=== PATIENT | female | born 2000 | race American Indian/Alaskan Native ===

== ENCOUNTER 2018-01-11 09:34 | Emergency (ER) | payer OTHER ==
[2018-01-11] MEDS ORDERED: Sodium Chloride 0.9% 2.5 ML Syringe FLUSH PRN (09:46)
[2018-01-11] MEDS ORDERED: Sodium Chloride 0.9% 1,000 ML IV ONE ×2 (09:46→10:48)
[2018-01-11] MEDS ORDERED: Sodium Chloride 0.9% 10 ML Syringe FLUSH PRN (09:46)
[2018-01-11] MEDS ORDERED: Ondansetron 4 MG/2 ML SDV IVPUSH ONE (09:46)
--- NOTE | 2018-01-11 09:46 | EDM.PDOC ---
ED HPI GENERAL MEDICAL PROBLEM - General Chief Complaint: Gastrointestinal Problem Stated Complaint: VOMITING Time Seen by Provider: 01/11/18 09:37 Source of Information: Reports: Patient History Limitations: Reports: No Limitations - History of Present Illness INITIAL COMMENTS - FREE TEXT/NARRATIVE: History of present illness: []Patient's had 3 days of vomiting and diarrhea within 10 times each per day and is watery. Patient has a 4 year history of intermittent enteritis she does not take any medications for. Last week she saw her physician and was put on a steroid Dosepak that she completed. She states she's had fevers and diffuse abdominal pain. She denies being and had a negative test last week. She denies any exposures to anyone with similar symptoms. Review of systems: As per history of present illness and below otherwise all systems reviewed and negative. Past medical history: As per history of present illness and as reviewed below otherwise noncontributory. Surgical history: As per history of present illness and as reviewed below otherwise noncontributory. Social history: No reported history of drug or alcohol abuse. Family history: As per history of present illness and as reviewed below otherwise noncontributory. Physical exam: General: Well developed, well nourished in NAD HEENT: Atraumatic, normocephalic, pupils reactive, negative for conjunctival pallor or scleral icterus, mucous membranes moist, throat clear, neck supple, nontender, trachea midline. Lungs: Clear to auscultation, breath sounds equal bilaterally, chest nontender. Heart: S1S2, regular, negative for clicks, rubs, or JVD. Abdomen: Soft, nondistended, nontender. Negative for masses or hepatosplenomegaly. Negative for costovertebral tenderness. Pelvis: Stable nontender. Genitourinary: Deferred. Rectal: Deferred. Extremities: Atraumatic, negative for cords or calf pain. Neurovascular unremarkable. Neuro: Awake, alert, oriented. Cranial nerves II through XII unremarkable. Cerebellum unremarkable. Motor and sensory unremarkable throughout. Exam nonfocal. Diagnostics: []CBC normal, chemistries normal, UA with 40+ ketones Therapeutics: []2 L IV fluids given, Zofran Reglan given for nausea and vomiting, Levsin given for pain. Impression: []Acute enteritis, dehydration Plan: []Zofran for nausea, increase fluids follow up with primary care Definitive disposition and diagnosis as appropriate pending reevaluation and review of above. - Related Data Allergies Allergy/AdvReac Type Severity Reaction Status Date / Time No Known Allergies Allergy Verified 01/11/18 09:48 Home Meds: Home Meds Levonorgestrel-Ethin Estradiol [Levonor-Eth Estrad 0.15-0.03] 1 tab PO DAILY [History] H2 Madhav 1 dose PO DAILY 01/11/18 [History] Ondansetron HCl [Zofran] 4 mg PO Q4HR #12 tablet 01/11/18 [Rx] Past Medical History HEENT History: Reports: None Cardiovascular History: Reports: None Respiratory History: Reports: None Other Gastrointestinal History: occ heartburn, epigastric pain-has not had an episode of n/v for 2 weeks Genitourinary History: Reports: None VAN LOADER History: Reports: None Musculoskeletal History: Reports: None Neurological History: Reports: None Psychiatric History: Reports: None Endocrine/Metabolic History: Reports: None Hematologic History: Reports: None Immunologic History: Reports: None Oncologic (Cancer) History: Reports: None Dermatologic History: Reports: None - Infectious Disease History Infectious Disease History: Reports: None - Past Surgical History Head Surgeries/Procedures: Reports: None HEENT Surgical History: Reports: Tonsillectomy GI Surgical History: Reports: Cholecystectomy, EGD Female Surgical History: Reports: None Social & Family History - Family History Family Medical History: Noncontributory - Caffeine Use Caffeine Use: Reports: Soda ED ROS GENERAL - Review of Systems Review Of Systems: See Below (See history of present illness) ED EXAM, GI/ABD - Physical Exam Exam: See Below (See history of present illness) Course - Vital Signs Last Recorded V/S: Last Vital Signs Temp 98.2 F 01/11/18 09:50 Pulse 80 01/11/18 09:50 Resp 18 01/11/18 09:50 BP 141/93 H 01/11/18 09:50 Pulse Ox 97 01/11/18 09:50 - Orders/Labs/Meds Orders: Active Orders 24 hr Category Date Time Status CULTURE URINE [RM] Stat Lab 01/11/18 09:43 Received HCG QUALITATIVE,URINE [URCHEM] Stat Lab 01/11/18 09:43 Ordered UA W/MICROSCOPIC [URIN] Stat Lab 01/11/18 09:43 Ordered Sodium Chloride 0.9% [Saline Flush] Med 01/11/18 09:46 Active 10 ml FLUSH ASDIRECTED PRN Sodium Chloride 0.9% [Saline Flush] Med 01/11/18 09:46 Active 2.5 ml FLUSH ASDIRECTED PRN Saline Lock Insert [OM.PC] Stat Oth 01/11/18 09:46 Ordered Medication Orders Sodium Chloride (Saline Flush) 10 ml FLUSH ASDIRECTED PRN PRN Reason: Keep Vein Open Last Admin: 01/11/18 09:58 Dose: 10 ml Sodium Chloride (Saline Flush) 2.5 ml FLUSH ASDIRECTED PRN PRN Reason: Keep Vein Open Last Admin: 01/11/18 09:58 Dose: 2.5 ml Labs: Laboratory Tests 01/11/18 01/11/18 01/11/18 Range/Units 09:43 09:43 09:56 WBC 10.59 (4.0-11.0) K/uL RBC 5.70 (4.30-5.90) M/uL Hgb 16.3 H (12.0-16.0) g/dL Hct 47.5 H (36.0-46.0) % MCV 83.3 (80.0-98.0) fL MCH 28.6 (27.0-32.0) pg MCHC 34.3 (31.0-37.0) g/dL RDW Std Deviation 43.3 (28.0-62.0) fl RDW Coeff of Atif 14 (11.0-15.0) % Plt Count 333 (150-400) K/uL MPV 12.20 H (7.40-12.00) fL Neut % (Auto) 70.5 (48.0-80.0) % Lymph % (Auto) 17.9 (16.0-40.0) % [place] % (Auto) 9.6 (0.0-15.0) % Eos % (Auto) 1.6 (0.0-7.0) % Baso % (Auto) 0.4 (0.0-1.5) % Neut # (Auto) 7.5 H (1.4-5.7) K/uL Lymph # (Auto) 1.9 (0.6-2.4) K/uL [place] # (Auto) 1.0 H (0.0-0.8) K/uL Eos # (Auto) 0.2 (0.0-0.7) K/uL Baso # (Auto) 0.0 (0.0-0.1) K/uL Nucleated RBC % 0.0 /100WBC Nucleated RBCs # 0 K/uL Sodium (136-145) mmol/L Potassium (3.5-5.1) mmol/L Chloride (98-107) mmol/L Carbon Dioxide (21.0-32.0) mmol/L BUN (7.0-18.0) mg/dL Creatinine (0.6-1.0) mg/dL Est Cr Clr Drug Dosing mL/min Estimated GFR (MDRD) ml/min Glucose (74-106) mg/dL Calcium (8.5-10.1) mg/dL Total Bilirubin (0.2-1.0) mg/dL AST (15-37) IU/L ALT (14-63) IU/L Alkaline Phosphatase (46-116) U/L Total Protein (6.4-8.2) g/dL Albumin (3.4-5.0) g/dL Globulin (2.0-3.5) g/dL Albumin/Globulin Ratio (1.3-2.8) Lipase (73-393) U/L Urine Color YELLOW Urine Appearance CLEAR Urine pH 6.0 (5.0-8.0) Ur Specific [place] >= 1.030 (1.001-1.035) Urine Protein 100 (NEGATIVE) mg/dL Urine Glucose (UA) NEGATIVE (NEGATIVE) mg/dL Urine Ketones 40 H (NEGATIVE) mg/dL Urine Occult Blood MODERATE (NEGATIVE) Urine Nitrite NEGATIVE (NEGATIVE) Urine Bilirubin MODERATE H (NEGATIVE) Urine Ictotest NEGATIVE Urine Urobilinogen 0.2 (<2.0) EU/dL Ur Leukocyte Esterase NEGATIVE (NEGATIVE) Urine RBC 3-6 (0-2/HPF) Urine WBC 6-8 (0-5/HPF) Ur Epithelial Cells MODERATE (NONE-FEW) Urine Bacteria FEW (NEGATIVE) Urine HCG, Qual NEGATIVE (NEGATIVE) 01/11/18 Range/Units 09:56 WBC (4.0-11.0) K/uL RBC (4.30-5.90) M/uL Hgb (12.0-16.0) g/dL Hct (36.0-46.0) % MCV (80.0-98.0) fL MCH (27.0-32.0) pg MCHC (31.0-37.0) g/dL RDW Std Deviation (28.0-62.0) fl RDW Coeff of Atif (11.0-15.0) % Plt Count (150-400) K/uL MPV (7.40-12.00) fL Neut % (Auto) (48.0-80.0) % Lymph % (Auto) (16.0-40.0) % [place] % (Auto) (0.0-15.0) % Eos % (Auto) (0.0-7.0) % Baso % (Auto) (0.0-1.5) % Neut # (Auto) (1.4-5.7) K/uL Lymph # (Auto) (0.6-2.4) K/uL [place] # (Auto) (0.0-0.8) K/uL Eos # (Auto) (0.0-0.7) K/uL Baso # (Auto) (0.0-0.1) K/uL Nucleated RBC % /100WBC Nucleated RBCs # K/uL Sodium 139 (136-145) mmol/L Potassium 3.7 (3.5-5.1) mmol/L Chloride 101 (98-107) mmol/L Carbon Dioxide 22.2 (21.0-32.0) mmol/L BUN 22 H (7.0-18.0) mg/dL Creatinine 1.0 (0.6-1.0) mg/dL Est Cr Clr Drug Dosing 89.99 mL/min Estimated GFR (MDRD) > 60.0 ml/min Glucose 97 (74-106) mg/dL Calcium 9.8 (8.5-10.1) mg/dL Total Bilirubin 1.0 (0.2-1.0) mg/dL AST 18 (15-37) IU/L ALT 38 (14-63) IU/L Alkaline Phosphatase 109 (46-116) U/L Total Protein 9.1 H (6.4-8.2) g/dL Albumin 4.8 (3.4-5.0) g/dL Globulin 4.3 H (2.0-3.5) g/dL Albumin/Globulin Ratio 1.1 L (1.3-2.8) Lipase 95 (73-393) U/L Urine Color Urine Appearance Urine pH (5.0-8.0) Ur Specific [place] (1.001-1.035) Urine Protein (NEGATIVE) mg/dL Urine Glucose (UA) (NEGATIVE) mg/dL Urine Ketones (NEGATIVE) mg/dL Urine Occult Blood (NEGATIVE) Urine Nitrite (NEGATIVE) Urine Bilirubin (NEGATIVE) Urine Ictotest Urine Urobilinogen (<2.0) EU/dL Ur Leukocyte Esterase (NEGATIVE) Urine RBC (0-2/HPF) Urine WBC (0-5/HPF) Ur Epithelial Cells (NONE-FEW) Urine Bacteria (NEGATIVE) Urine HCG, Qual (NEGATIVE) Meds: Medications Generic Name Dose Route Start Last Admin Trade Name Moon PRN Reason Stop Dose Admin Sodium Chloride 10 ml 01/11/18 09:46 01/11/18 09:58 Saline Flush FLUSH 10 ml ASDIRECTED PRN Administration Keep Vein Open Sodium Chloride 2.5 ml 01/11/18 09:46 01/11/18 09:58 Saline Flush FLUSH 2.5 ml ASDIRECTED PRN Administration Keep Vein Open Discontinued Medications Generic Name Dose Route Start Last Admin Trade Name Moon PRN Reason Stop Dose Admin Hyoscyamine 0.125 mg 01/11/18 09:54 01/11/18 10:03 Hyomax-Sl SL 01/11/18 09:55 0.125 mg ONETIME ONE Administration Sodium Chloride 1,000 mls @ 999 mls/hr 01/11/18 09:46 01/11/18 09:57 Normal Saline IV 01/11/18 10:46 999 mls/hr .Bolus ONE Administration Sodium Chloride 1,000 mls @ 999 mls/hr 01/11/18 10:48 01/11/18 10:53 Normal Saline IV 01/11/18 11:48 999 mls/hr .Bolus ONE Administration Metoclopramide HCl 10 mg 01/11/18 10:43 01/11/18 10:53 Reglan IVPUSH 01/11/18 10:44 10 mg ONETIME ONE Administration Ondansetron HCl 4 mg 01/11/18 09:46 01/11/18 09:58 Zofran IVPUSH 01/11/18 09:47 4 mg ONETIME ONE Administration Departure - Departure Time of Disposition: 11:51 Disposition: Home, Self-Care 01 Condition: Good Clinical Impression: Enteritis - Discharge Information Prescriptions: Ondansetron HCl [Zofran] 4 mg PO Q4HR #12 tablet Referrals: PCP,None [Primary Care Provider] - Forms: ED Department Discharge Additional Instructions: The following information is given to patients seen in the emergency department who are being discharged to home. This information is to outline your options for follow-up care. We provide all patients seen in our emergency department with a follow-up referral. The need for follow-up, as well as the timing and circumstances, are variable depending upon the specifics of your emergency department visit. If you don't have a primary care physician on staff, we will provide you with a referral. We always advise you to contact your personal physician following an emergency department visit to inform them of the circumstance of the visit and for follow-up with them and/or the need for any referrals to a consulting specialist. The emergency department will also refer you to a specialist when appropriate. This referral assures that you have the opportunity for follow-up care with a specialist. All of these measure are taken in an effort to provide you with optimal care, which includes your follow-up. Under all circumstances we always encourage you to contact your private physician who remains a resource for coordinating your care. When calling for follow-up care, please make the office aware that this follow-up is from your recent emergency room visit. If for any reason you are refused follow-up, please contact the [facility] Emergency Department at and asked to speak to the emergency department charge nurse. [facility] [address] [place] [id number] - My Orders Last 24 Hours: My Active Orders 01/11/18 09:43 CULTURE URINE [RM] Stat HCG QUALITATIVE,URINE [URCHEM] Stat UA W/MICROSCOPIC [URIN] Stat 01/11/18 09:46 Sodium Chloride 0.9% [Saline Flush] 10 ml FLUSH ASDIRECTED PRN Sodium Chloride 0.9% [Saline Flush] 2.5 ml FLUSH ASDIRECTED PRN Saline Lock Insert [OM.PC] Stat - Assessment/Plan Last 24 Hours: My Active Orders 01/11/18 09:43 CULTURE URINE [RM] Stat HCG QUALITATIVE,URINE [URCHEM] Stat UA W/MICROSCOPIC [URIN] Stat 01/11/18 09:46 Sodium Chloride 0.9% [Saline Flush] 10 ml FLUSH ASDIRECTED PRN Sodium Chloride 0.9% [Saline Flush] 2.5 ml FLUSH ASDIRECTED PRN Saline Lock Insert [OM.PC] Stat
[2018-01-11] MEDS ORDERED: Hyoscyamine 0.125 MG Tab.SL SL ONE (09:54)
[2018-01-11 10:31] LABS: CHLORIDE,CL 101 mmol/L (98-107); SODIUM,NA 139 mmol/L (136-145)
[2018-01-11] MEDS ORDERED: Metoclopramide 10 MG/2 ML SDV IVPUSH ONE (10:43)
[2018-01-11 12:02] VITALS: BP 116/76
== END 2018-01-11 11:55 | disposition home or self-care (01) ==
LOC: MW.ED 09:34
DX: K52.9 Noninfective gastroenteritis and colitis, unspecified (principal); E86.0 Dehydration; Z79.899 Other long term (current) drug therapy
CPT/HCPCS: 36415; 80053; 81001; 81025; 83690; 85025; 87086; 96361; 96374; 96375; 99284; A9270; J2405; J2765; J7040; 99283

== ENCOUNTER 2019-01-02 14:58 | Inpatient (IN) | payer OTHER ==
[2019-01-02] MEDS ORDERED: Sodium Chloride 0.9% 10 ML SDV IV PRN (15:46)
[2019-01-02] MEDS ORDERED: Lidocaine 1% 50 ML MDV INJECT PRN (15:46)
[2019-01-02] MEDS ORDERED: Water For Irrigation,Sterile 1,000 ML Container IRR PRN (15:46)
[2019-01-02] MEDS ORDERED: Sodium Chloride 0.9% 10 ML Syringe FLUSH PRN (15:46)
[2019-01-02] MEDS ORDERED: Misoprostol 200 MCG Tab PO PRN (15:46)
[2019-01-02] MEDS ORDERED: Ondansetron 4 MG/2 ML SDV IV PRN (15:46)
[2019-01-02] MEDS ORDERED: Sodium Chloride 0.9% 2.5 ML Syringe FLUSH PRN (15:46)
[2019-01-02] MEDS ORDERED: Butorphanol 1 MG/ML SDV IVPUSH PRN (15:46)
[2019-01-02] MEDS ORDERED: Nalbuphine 10 MG/1 ML Vial IVPUSH PRN (15:46)
[2019-01-02] MEDS ORDERED: Carboprost Tromethamine 250 MCG/1 ML Amp IM PRN (15:46)
[2019-01-02] MEDS ORDERED: Tranexamic Acid 1,000 MG in Sodium Chloride 0.9% 100 ML IV PRN (15:46)
[2019-01-02] MEDS ORDERED: Methylergonovine 0.2 MG/1 ML Amp IM PRN (15:46)
[2019-01-02] MEDS ORDERED: Lactated Ringers 1,000 ML IV SCH (16:00)
[2019-01-02] MEDS ORDERED: Oxytocin/0.9 % Sodium Chloride 30 UNIT/500 ML BAG IV SCH (16:00)
[2019-01-03] MEDS ORDERED: Lanolin 100% Cream 7 GM Tube TOP PRN (01:59)
[2019-01-03] MEDS ORDERED: Ibuprofen 400 MG Tab PO PRN (01:59)
[2019-01-03] MEDS ORDERED: Aluminum Hydroxide/Magnesium Hydroxide/Simethicone Susp 30 ML Cup PO PRN (01:59)
[2019-01-03] MEDS ORDERED: Bisacodyl 10 MG Supp RECTAL PRN (01:59)
[2019-01-03] MEDS ORDERED: Benzocaine/Menthol 20%-0.5% Spray 78 GM Cannister TOP PRN (01:59)
[2019-01-03] MEDS ORDERED: Witch Hazel Medicated Pads 40/Jar TOP PRN (01:59)
[2019-01-03] MEDS ORDERED: oxyCODONE 5 MG Tab PO PRN (01:59)
[2019-01-03] MEDS ORDERED: Acetaminophen 500 MG Tab PO PRN (01:59)
--- NOTE | 2019-01-03 02:07 | PCM.OPNOTE ---
- General Post-Op/Procedure Note Date of Surgery/Procedure: 01/03/19 Operative Procedure(s): /2nd MLL repaired Findings: Viable female APGARs 7, 9 weight 3400 gm. Spontaneous delivery intact placenta with 3V cord Pre Op Diagnosis: 39/4 week IUP. Labor Post-Op Diagnosis: Same Anesthesia Technique: Local Primary Surgeon: Rebeca Saul EBL in mLs: 300 Complications: none known Condition: Good Free Text/Narrative:: Dictation [id number]
--- NOTE | 2019-01-03 02:30 | OR ---
SURGEON: Rebeca Saul M.D. DATE OF PROCEDURE: 01/03/2019 PREOPERATIVE DIAGNOSES: 1. 39 and 4/7 weeks' intrauterine . 2. Labor. POSTOPERATIVE DIAGNOSES: 1. 39 and 4/7 weeks' intrauterine . 2. Labor. PROCEDURE: Spontaneous vaginal delivery, second-degree midline laceration repaired. PRIMARY SURGEON: Rebeca Saul M.D. ANESTHESIA: Local. ESTIMATED BLOOD LOSS: 300 mL. COMPLICATIONS: None. FINDINGS: Viable female, Apgars 7 at 1 minute and 9 at 5 minutes. Weight of 3400 g. Spontaneous delivery, intact placenta, 3-vessel cord. DISPOSITION: Infant to nursery, mom in LDRP. PROCEDURE DETAILS: Isabella is a 18-year-old G1, P0, at 39 and 4/7 weeks gestational age, who presented on the evening of 01/02/2019 with leakage of fluid and regular contractions. On initial examination, she was found to be 1-2 cm. She progressed to 3-4 cm. There was a forebag noted. This was ruptured. Clear fluid was returned and she continued to progress in a regular contraction pattern. heart tones remained in the 130s with variability. The patient progressed much more rapidly thereafter within next couple of hours to complete, 100% effaced, +1 station with feeling of the urge to push. She began pushing efforts shortly thereafter, pushed for approximately 2 hours until she was at a +3 station. I was called for delivery. Upon my arrival, patient was placed in modified dorsal lithotomy position and was prepped and draped in the usual aseptic manner. Continued with pushing efforts was able to deliver infant's head atraumatically spontaneously, followed by anterior shoulder, posterior shoulder, and remainder of the body without difficulty and shoulder cord x2 was noted. This was reduced manually. The infant's oropharynx and nares were bulb suctioned. was handed off to her mother with attending nursing staff at her side after a delay. Cord was clamped x2 and cut. Cord arterial, cord venous, cord blood sampling obtained. Light pressure was applied while the placenta was delivered spontaneously intact. Vigorous fundal uterine massage was then applied while 30 units of Pitocin was delivered in 500 mL of IV fluid. Upon inspection of cervix and vaginal sidewall, and perineum, there was found to be a second-degree midline laceration which was repaired using 3-0 Vicryl after infiltrating the area with approximately 10 mL of 1% lidocaine. The patient tolerated the repair well. Hemostasis was evident. All sponge, needle, and instrument count were correct. The patient remained in LDRP in stable condition, to nursery. CARA / LUÍS /[id number]
[2019-01-03] MEDS: Ibuprofen 800 MG Tab PO PRN ×3 (03:49→16:26)
[2019-01-03] MEDS: Docusate Sodium 100 MG Cap PO PRN ×2 (10:22→21:09)
[2019-01-03] MEDS: Acetaminophen 500 MG Tab PO PRN (21:09)
[2019-01-04] MEDS: Ibuprofen 800 MG Tab PO PRN ×2 (00:06→09:22)
--- NOTE | 2019-01-04 04:00 | PCM.PNPP ---
- General Info Date of Service: 01/04/19 Subjective Update: 18 yo s/p PPD 1 , normal lochia , stable , denies any complains Functional Status: Reports: Pain Controlled, Tolerating Diet, Ambulating, Urinating - Review of Systems General: Reports: No Symptoms HEENT: Reports: No Symptoms Pulmonary: Reports: No Symptoms Cardiovascular: Reports: No Symptoms Gastrointestinal: Reports: No Symptoms Genitourinary: Reports: No Symptoms Musculoskeletal: Reports: No Symptoms Skin: Reports: No Symptoms Neurological: Reports: No Symptoms Psychiatric: Reports: No Symptoms - General Info Date of Service: 01/04/19 - Patient Data Vital Signs - Most Recent: Last Vital Signs Temp 36.6 C 01/03/19 19:06 Pulse 70 01/03/19 19:06 Resp 16 01/03/19 19:06 BP 140/91 H 01/03/19 19:06 Pulse Ox 98 01/03/19 19:06 Weight - Most Recent: 89.358 kg Med Orders - Current: Current Medications Acetaminophen (Tylenol Extra Strength) 500 mg PO Q4H PRN PRN Reason: Pain Acetaminophen (Tylenol Extra Strength) 1,000 mg PO Q4H PRN PRN Reason: Pain Last Admin: 01/03/19 21:09 Dose: 1,000 mg Al Hydroxide/Mg Hydroxide (Mag-Al Plus) 30 ml PO Q8H PRN PRN Reason: Heartburn Benzocaine/Menthol (Dermoplast Pain Relief 20%-0.5% [place]) 78 gm TOP ASDIRECTED PRN PRN Reason: Perineal Comfort Measure Last Admin: 01/03/19 03:41 Dose: 1 can Bisacodyl (Dulcolax) 10 mg RECTAL ONETIME PRN PRN Reason: Constipation Carboprost Tromethamine (Hemabate Ds) 250 mcg IM ASDIRECTED PRN PRN Reason: Post Hemorrhage Docusate Sodium (Colace) 100 mg PO BID PRN PRN Reason: Constipation Last Admin: 01/03/19 21:09 Dose: 100 mg Emollient Ointment (Lansinoh Hpa) 0 gm TOP ASDIRECTED PRN PRN Reason: Sore Nipples Tranexamic Acid 1,000 mg/ (Sodium Chloride) 110 mls @ 660 mls/hr IV ONETIME PRN PRN Reason: Bleeding Lactated Ringer's (Ringers, Lactated) 1,000 mls @ 150 mls/hr IV ASDIRECTED [facility] Oxytocin/Sodium Chloride (Oxytocin 30 Unit/500 Ml-Ns) 30 unit in 500 mls @ 999 mls/hr IV TITRATE [place] Last Admin: 01/03/19 01:38 Dose: 999 mls/hr Ibuprofen (Motrin) 400 mg PO Q4H PRN PRN Reason: Pain Ibuprofen (Motrin) 800 mg PO Q6H PRN PRN Reason: Pain Last Admin: 01/04/19 00:06 Dose: 800 mg Lidocaine HCl (Xylocaine 1%) 50 ml INJECT ONETIME PRN PRN Reason: Laceration repair Last Admin: 01/03/19 01:43 Dose: 50 ml Methylergonovine Maleate (Methergine) 0.2 mg IM ASDIRECTED PRN PRN Reason: Post Hemorrhage Nalbuphine HCl (Nubain) 10 mg IVPUSH Q1H PRN PRN Reason: Pain (severe 7-10) Last Admin: 01/02/19 21:27 Dose: 10 mg Ondansetron HCl (Zofran) 4 mg IV Q6H PRN PRN Reason: Nausea/Vomiting Oxycodone HCl (Oxycodone) 5 mg PO Q2H PRN PRN Reason: Pain Sodium Chloride (Saline Flush) 10 ml FLUSH ASDIRECTED PRN PRN Reason: Keep Vein Open Sodium Chloride (Saline Flush) 2.5 ml FLUSH ASDIRECTED PRN PRN Reason: Keep Vein Open Sodium Chloride (Normal Saline) 10 ml IV ASDIRECTED PRN PRN Reason: IV Use Sterile Water (Sterile Water For Irrigation) 1,000 ml IRR ASDIRECTED PRN PRN Reason: delivery Last Admin: 01/03/19 01:35 Dose: 1,000 ml Witch Flor (Tucks) 1 pad TOP ASDIRECTED PRN PRN Reason: comfort care Last Admin: 01/03/19 03:41 Dose: 1 tub Discontinued Medications Butorphanol Tartrate (Stadol) 1 mg IVPUSH Q1H PRN PRN Reason: Pain Misoprostol (Cytotec) 200 mcg PO ONETIME PRN PRN Reason: Post Hemorrhage - Infant Interaction Support Person: Mother, Significant Other, Friend - Recovery Exam Fundal Tone: Firms with Massage Fundal Level: 1 Fingerbreadths Below Umbilicus Fundal Placement: Midline Lochia Amount: Small Lochia Color: Rubra/Red Perineum Description: Edematous Other Perinuem Description: 2nd degree laceration Episiotomy/Laceration: Approximated Bladder Status: Voiding - Exam General: Alert HEENT: Pupils Equal Neck: Supple Lungs: Clear to Auscultation Cardiovascular: Regular Rate, Regular Rhythm GI/Abdominal Exam: Normal Bowel Sounds Extremities: Normal Inspection Neurological: No New Focal Deficit Psy/Mental Status: Alert - Problem List & Annotations (1) Vaginal delivery SNOMED Code(s): 291676856 Code(s): O80 - ENCOUNTER FOR FULL-TERM UNCOMPLICATED DELIVERY Status: Acute Current Visit: Yes - Problem List Review Problem List Initiated/Reviewed/Updated: Yes - Assessment Assessment:: 18yo PPD 1 , denies any complains , normal lochia , Pain control normal - Plan Plan:: Routine Discharge home today
[2019-01-04] MEDS: Acetaminophen 500 MG Tab PO PRN (04:15)
[2019-01-04 04:50] LABS: CHLORIDE,CL 107 mmol/L (98-107); SODIUM,NA 137 mmol/L (136-145)
[2019-01-04 07:51] VITALS: BP 133/91
[2019-01-04] MEDS: Docusate Sodium 100 MG Cap PO PRN (09:23)
== END 2019-01-04 12:50 | disposition home or self-care (01) | DRG 807 ==
LOC: MW.OBCHECK 14:58 → MW.OB 15:01 → MW.OBCHECK 15:45 → MW.OB 15:46 → OBSVTOIN 01-03 01:38 → MW.OB 01-03 06:08
PROVIDERS: ADMIT Obstetrics & Gynecology; ATTEND Obstetrics & Gynecology
PROC: 10E0XZZ Delivery of Products of Conception, External Approach (ICD-10-PCS; principal; 2019-01-03)
PROC: 0KQM0ZZ Repair Perineum Muscle, Open Approach (ICD-10-PCS; 2019-01-03)
DX: O70.1 Second degree perineal laceration during delivery (principal); Z37.0 Single live birth; Z3A.39 39 weeks gestation of pregnancy
CPT/HCPCS: 36415; 59025; 59409; 80053; 81003; 82803; 84112; 85025; 85027; 86850; 86900; 86901; A9270-GY; J2001; J2300; J2590